=== PATIENT | female | born 1955 | race Hispanic/Latino ===

== ENCOUNTER 2017-09-06 10:36 | Emergency (ER) | payer SELFPAY ==
[2017-09-06 11:19] VITALS: BMI 28.8
[2017-09-06 11:22] VITALS: TEMP 98.6
--- NOTE | 2017-09-06 11:25 | ED PDOC ---
Arrival/HPI - General Chief Complaint: Trauma Time Seen by Provider: 09/06/17 11:24 Historian: Patient - History of Present Illness Narrative History of Present Illness (Text): 09/06/17 11:25 Tiny Chapman is a 62 year old female presents to the Emergency department complaining of left ankle pain status post fall from a chair at 9am today. Patient informs she was attempting to reach "wrapping paper" when she lost her balance and fell on her back. Patient informs a shooting pain on her left knee radiating to her left leg and hip. Patient denies any chest pain, shortness of breath, nausea, vomiting , lightheadedness or any other complaints. Time/Duration: Prior to Arrival Symptom Onset: Gradual Symptom Course: Unchanged Activities at Onset: Light Context: Home Past Medical History - Provider Review Nursing Documentation Reviewed: Yes - Infectious Disease Hx of Infectious Diseases: None - Tetanus Immunization Tetanus Immunization: Up to Date - Cardiac Hx Angina: Yes Hx Hypertension: Yes - Pulmonary Hx Asthma: Yes - Neurological Hx Neurological Disorder: No - HEENT Hx HEENT Disorder: No - Renal Hx Renal Disorder: No - Endocrine/Metabolic Hx Endocrine Disorders: No - Hematological/Oncological Hx Blood Disorders: No - Integumentary Hx Dermatological Disorder: No - Musculoskeletal/Rheumatological Hx Arthritis: Yes (R hand, R foot) Hx Falls: No - Gastrointestinal Hx Gastroesophageal Reflux: Yes Other/Comment: Rectal prolapse - Genitourinary/Gynecological Other/Comment: Uterine prolapse, Bladder prolapse - Psychiatric Hx Anxiety: Yes Hx Substance Use: No - Past Surgical History Past Surgical History: No Previous - Surgical History Other/Comment: endometriosis. sinus polyps surgery. R foot surgery. sling for bladder/uterus - Anesthesia Hx Anesthesia: Yes Hx Anesthesia Reactions: No Hx Malignant Hyperthermia: No - Suicidal Assessment Feels Threatened In Home Enviroment: No Family/Social History - Physician Review Nursing Documentation Reviewed: Yes Family/Social History: Unknown Family HX Smoking Status: Never Smoked Hx Alcohol Use: No Hx Substance Use: No Hx Substance Use Treatment: No Allergies/Home Meds Allergies/Adverse Reactions: Allergies diphenhydramine [From Benadryl] Allergy (Verified 09/06/17 11:20) ANAPHYLAXIS iodine Allergy (Verified 09/06/17 11:20) ANAPHYLAXIS Penicillins Allergy (Verified 09/06/17 11:20) ANAPHYLAXIS Sulfa (Sulfonamide Antibiotics) Allergy (Verified 09/06/17 11:20) ANAPHYLAXIS CT Dye Allergy (Uncoded 09/06/17 11:20) ANAPHYLAXIS Home Medications: Home Meds Medication Instructions Recorded Confirmed Alprazolam [Xanax] 1 tab PO PRN PRN 09/06/17 09/06/17 Review of Systems - Review of Systems Constitutional: absent: Fevers Respiratory: absent: SOB Cardiovascular: absent: Chest Pain, Syncope Gastrointestinal: absent: Abdominal Pain Musculoskeletal: Other (left ankle and knee pain). absent: Back Pain, Neck Pain Skin: absent: Rash Neurological: absent: Headache, Dizziness Physical Exam Vital Signs Reviewed: Yes Vital Signs Temp Pulse Resp BP Pulse Ox 09/06/17 14:57 88 16 128/70 99 09/06/17 12:28 77 18 128/71 100 09/06/17 11:21 98.6 F 87 18 130/76 100 Temperature: Afebrile Appearance: Positive for: Uncomfortable Pain Distress: Moderate Mental Status: Positive for: Alert and Oriented X 3 - Systems Exam Head: Present: Atraumatic Pupils: Present: PERRL Mouth: Present: Moist Mucous Membranes Neck: Present: Normal Range of Motion. No: Meningeal Signs, MIDLINE TENDERNESS Respiratory/Chest: Present: Clear to Auscultation. No: Respiratory Distress Cardiovascular: Present: Regular Rate and Rhythm Abdomen: No: Tenderness, Distention Back: No: CVA Tenderness, Midline Tenderness Upper Extremity: Present: NORMAL PULSES Lower Extremity: Present: Tenderness, Swelling, Neurovascularly Intact, Other ( pain and mild deformity to left ankle lateral malleolus with soft tissue swelling, no achilles pain, there is pain on palpation of anterior tibia, lateral aspect of knee, negative drawers sign, no knee ligamentous laxity, there is mild pain to left lateral hip but no pain with rotation or flexion extension at hip, no right lower extremity pain, no upper extremity pain noted) Neurological: Present: Motor Func Grossly Intact, Normal Sensory Function Skin: Present: Warm Psychiatric: Present: Alert, Normal Insight, Normal Concentration Medical Decision Making ED Course and Treatment: 09/06/17 11:26 Differential Diagnosis included but are not limited to: sprain vs. ankle fracture 09/06/17 12:30 X-Ray of Tibia/Fibula reviewed by radiologist, shows minimally displaced distal fibula fracture. 09/06/17 12:33 X-ray of Ankle reviewed by radiologist, shows minimally displaced distal fibular fracture 09/07/17 11:09 Patient is nv intact. On re-exam she has persistent left hip pain but states she has had hx of "bad arthritis". Xrays of hip reveal degenerative changes. On re-exam she has been given crutches instructions, states she has used crutches in past. I discussed case with Dr. Rodney Dixon on -call ortho, and patient will be given on -call ortho as option for follow-up as well as podiatry/ortho clinic. Patient splinted in ED, posterior and stirrup at ankle. Re-exam post splint she is nv intact. Distal pulses intact pre and post procedure. Patient's allergies reviewed. Risks/side effects of Ultracet reviewed with patient she states she believes she has had this in past with no adverse effect. Discharged via wheelchair to her transportation. - RAD Interpretation Radiology Orders: 09/06/17 11:25 ANKLE LEFT 3 VIEWS ROUTINE [RAD] Stat 09/06/17 11:27 TIBIA FIBULA LT FALL PROTOCOL [RAD] Stat 09/06/17 13:03 Hip Left [HIP MIN 2V W/ PELVIS LT] [RAD] Stat Warp Dyeing Tender: Radiologist - Medication Orders Current Medication Orders: Discontinued Medications Acetaminophen (Tylenol 325mg Tab) 650 mg PO ONCE STA Stop: 09/06/17 11:26 Last Admin: 09/06/17 11:36 Dose: 650 mg Alprazolam (Xanax) 0.25 mg PO STAT STA Stop: 09/06/17 11:26 Last Admin: 09/06/17 11:36 Dose: 0.25 mg - Scribe Statement The provider has reviewed the documentation as recorded by the Hinaibalia Rojas. All medical record entries made by the Bro were at my direction and personally dictated by me. I have reviewed the chart and agree that the record accurately reflects my personal performance of the history, physical exam, medical decision making, and the department course for this patient. I have also personally directed, reviewed, and agree with the discharge instructions and disposition. Disposition/Present on Arrival - Present on Arrival Any Indicators Present on Arrival: No History of DVT/PE: No History of Uncontrolled Diabetes: No Urinary Catheter: No History of Decub. Ulcer: No History Surgical Site Infection Following: None - Disposition Have Diagnosis and Disposition been Completed?: Yes Diagnosis: Ankle fracture, Hip pain Disposition: HOME/ ROUTINE Disposition Time: 14:00 Patient Plan: Discharge Condition: GOOD Discharge Instructions (ExitCare): Ankle Fracture (ED) Additional Instructions: Rest. Ice and elevated leg. Use crutches as directed. For any numbness or weakness, any bleeding, any decreased sensation, any persistent or worsening of pain or symptoms, get rechecked. Do not bear weight on the affected leg. Follow-up with orthopedic doctor as directed. Prescriptions: Tramadol HCl/Acetaminophen [Tramadol-Acetaminophn 37.5-325] 1 each PO BID PRN # 8 tablet PRN Reason: Pain, Severe (8-10) Referrals: [facility] [Outside] - Follow up with primary [facility] [Outside] - Follow up with primary [facility] [place] [Outside] - Follow up with primary Podiatry Clinic [Outside] - Follow up with primary Clement CONRAD,Ramirez Bautista MD [Primary Care Provider] - Follow up with primary Susan Nelson MD [Staff Provider] - Follow up with primary Forms: [id number] (Tuvaluan)
--- NOTE | 2017-09-06 12:18 | RAD ---
PROCEDURE: Left Ankle Radiographs. HISTORY: ankle injury COMPARISON: None FINDINGS: BONES: Minimally displaced distal fibula fracture. JOINTS: Ankle mortise maintained. Talar dome intact SOFT TISSUES: Lateral malleolar soft tissue swelling. OTHER FINDINGS: Inferior plantar calcaneal spur. IMPRESSION: Minimally displaced distal fibular fracture.
--- NOTE | 2017-09-06 12:19 | RAD ---
PROCEDURE: Radiographs of the left tibia and fibula. HISTORY: r/o fx COMPARISON: None available. TECHNIQUE: Frontal and lateral views obtained. FINDINGS: BONES: Minimally displaced distal fibular fracture. JOINT SPACES: Unremarkable. OTHER FINDINGS: Lateral malleolar soft tissue swelling. IMPRESSION: Minimally displaced distal fibula fracture.
--- NOTE | 2017-09-06 14:09 | RAD ---
PROCEDURE: Left Hip X-ray Radiographs. HISTORY: hip pain COMPARISON: None. FINDINGS: BONES: No fracture. JOINTS: Narrowing of both hips with subchondral sclerosis, cystic change and osteophytosis, left worst than right. SOFT TISSUES: Normal. OTHER FINDINGS: None. IMPRESSION: Bilateral hip degenerative changes, left worse than right.
[2017-09-06 14:58] VITALS: BP 128/70; PULSE 88; RESP 16; O2SAT 99
== END 2017-09-06 14:54 | disposition home or self-care (01) ==
LOC: ED 10:36
DX: M25.552 Pain in left hip (principal); S82.832A Other fracture of upper and lower end of left fibula, initial encounter for closed fracture; W07.XXXA Fall from chair, initial encounter; Y92.009 Unspecified place in unspecified non-institutional (private) residence as the place of occurrence of the external cause

== ENCOUNTER 2017-10-03 12:21 | Emergency (ER) | payer SELFPAY ==
[2017-10-03 12:21] VITALS: BMI 28.8
[2017-10-03 12:34] VITALS: TEMP 98.3
[2017-10-03] MEDS ORDERED: Oxycodone/Acetaminophen 5/325 mg Tab PO STA (12:49)
--- NOTE | 2017-10-03 12:57 | ED PDOC ---
Arrival/HPI - General Chief Complaint: Lower Extremity Problem/Injury Time Seen by Provider: 10/03/17 12:29 Historian: Patient - History of Present Illness Narrative History of Present Illness (Text): 10/03/17 12:44 A 62 year old female presents to the emergency department complaining of left calf pain. Patient was seen in ED on 09/06 after fall and was diagnosed with fibula fracture. Patient is being followed by medical csr Dr. Kern with non- operative mgmt of fracture with splinting and repeat xrays showing improvement of fracture with plan to transition to walking boot in 3 weeks. Patient reports that she was at podiatrists today and he sent her to ED for futher evaluation after she mentioned calf pain x 2 days as he was worried about a blood clot. Patient denies chest pain, shortness of breath, or palpitations. Denies new trauma. PM:D Dr. Ramirez Vaughan Past Medical History - Provider Review Nursing Documentation Reviewed: Yes - Infectious Disease Hx of Infectious Diseases: None - Tetanus Immunization Tetanus Immunization: Up to Date - Reproductive Menopause: Yes - Cardiac Hx Angina: Yes Hx Hypertension: Yes - Pulmonary Hx Asthma: Yes - Neurological Hx Neurological Disorder: No - HEENT Hx HEENT Disorder: No - Renal Hx Renal Disorder: No - Endocrine/Metabolic Hx Endocrine Disorders: No - Hematological/Oncological Hx Blood Disorders: No - Integumentary Hx Dermatological Disorder: No - Musculoskeletal/Rheumatological Hx Arthritis: Yes (R hand, R foot) Hx Falls: No - Gastrointestinal Hx Gastroesophageal Reflux: Yes Other/Comment: Rectal prolapse - Genitourinary/Gynecological Other/Comment: Uterine prolapse, Bladder prolapse - Psychiatric Hx Anxiety: Yes Hx Substance Use: No - Past Surgical History Past Surgical History: No Previous - Surgical History Other/Comment: endometriosis. sinus polyps surgery. R foot surgery. sling for bladder/uterus - Anesthesia Hx Anesthesia: Yes Hx Anesthesia Reactions: No Hx Malignant Hyperthermia: No - Suicidal Assessment Feels Threatened In Home Enviroment: No Family/Social History - Physician Review Nursing Documentation Reviewed: Yes Family/Social History: No Known Family HX Smoking Status: Never Smoked Hx Alcohol Use: No Hx Substance Use: No Hx Substance Use Treatment: No Allergies/Home Meds Allergies/Adverse Reactions: Allergies diphenhydramine [From Benadryl] Allergy (Verified 10/03/17 12:34) ANAPHYLAXIS iodine Allergy (Verified 10/03/17 12:34) ANAPHYLAXIS Penicillins Allergy (Verified 10/03/17 12:34) ANAPHYLAXIS Sulfa (Sulfonamide Antibiotics) Allergy (Verified 09/06/17 11:20) ANAPHYLAXIS CT Dye Allergy (Uncoded 09/06/17 11:20) ANAPHYLAXIS Home Medications: Home Meds Medication Instructions Recorded Confirmed Alprazolam [Xanax] 1 tab PO PRN PRN 09/06/17 10/03/17 Ibuprofen [Motrin Ib] 200 mg PO PRN PRN 10/03/17 10/03/17 Review of Systems - Physician Review All systems were reviewed & negative as marked: Yes - Review of Systems Respiratory: absent: SOB, Cough, Sputum, Wheezing Cardiovascular: absent: Chest Pain, Palpitations, Edema, Calf Pain, Orthopnea, Syncope Gastrointestinal: absent: Abdominal Pain, Constipation, Diarrhea, Nausea, Vomiting Musculoskeletal: Other (left calf pain) Physical Exam Vital Signs Reviewed: Yes Vital Signs Temp Pulse Resp BP Pulse Ox 10/03/17 15:14 73 18 134/86 99 10/03/17 12:29 98.3 F 104 H 20 118/60 100 Temperature: Afebrile Blood Pressure: Normal Pulse: Regular Respiratory Rate: Normal Appearance: Positive for: Well-Appearing Pain Distress: None Mental Status: Positive for: Alert and Oriented X 3 - Systems Exam Head: Present: Atraumatic, Normocephalic Pupils: Present: PERRL Extroacular Muscles: Present: EOMI Conjunctiva: Present: Normal Mouth: Present: Moist Mucous Membranes Respiratory/Chest: Present: Clear to Auscultation, Good Air Exchange. No: Respiratory Distress, Accessory Muscle Use Cardiovascular: Present: Regular Rate and Rhythm, Normal S1, S2. No: Murmurs Abdomen: Present: Normal Bowel Sounds. No: Tenderness, Distention, Peritoneal Signs Upper Extremity: Present: Normal Inspection. No: Cyanosis, Edema Lower Extremity: Present: CALF TENDERNESS (posterior left calf), NORMAL PULSES ( distal pulses intact), Swelling (left leg, mostly in toes) Neurological: Present: GCS=15, CN II-XII Intact Medical Decision Making ED Course and Treatment: 10/03/17 12:49 Impression: 62 year old female with left calf pain. Physical exam shows left posterior calf tenderness and swelling, distal pulses intact. No warmth or redness to suggest infection. Plan: -- Lower Extremity Ultrasound to r/o dvt. -- Percocet -- Reassess and disposition Prior Visits: Notes and results from previous visits were reviewed. Patient was last seen in the emergency department on 09/06/2017 for left ankle pain s/p fall. Patient was d/c home. Progress Notes: 10/03/17 13:06 U/s negative for dvt. Will dc to follow-up with medical csr. - RAD Interpretation Radiology Orders: 10/03/17 12:49 DUPLEX LOWER EXTRM VEIN LEFT [US] Stat - Medication Orders Current Medication Orders: Discontinued Medications Oxycodone/Acetaminophen (Percocet 5/325 Mg Tab) 1 tab PO STAT STA Stop: 10/03/17 12:50 Last Admin: 10/03/17 13:16 Dose: 1 tab MAR Pain Assessment Document 10/03/17 13:16 EQ (Rec: 10/03/17 13:16 EQ [id number]) Pain Reassessment Is this a pain reassessment? No Sleep Is patient sleeping during reassessment? No Presence of Pain Presence of Pain Yes Pain Scale Used Pain Scale Used Numeric - Scribe Statement The provider has reviewed the documentation as recorded by the Bro [place] Provider Scribe Attestation: All medical record entries made by the Scribe were at my direction and personally dictated by me. I have reviewed the chart and agree that the record accurately reflects my personal performance of the history, physical exam, medical decision making, and the department course for this patient. I have also personally directed, reviewed, and agree with the discharge instructions and disposition. Disposition/Present on Arrival - Present on Arrival Any Indicators Present on Arrival: No History of DVT/PE: No History of Uncontrolled Diabetes: No Urinary Catheter: No History of Decub. Ulcer: No History Surgical Site Infection Following: None - Disposition Have Diagnosis and Disposition been Completed?: Yes Diagnosis: Leg pain Disposition: HOME/ ROUTINE Disposition Time: 14:55 Patient Plan: Discharge Condition: GOOD Additional Instructions: Follow-up with PMD within 2 days. Return to ED if condition worsens. Follow- up with your medical csr within 2 days Referrals: Clement CONRAD,Ramirez Bautista MD [Primary Care Provider] - Follow up with primary Forms: [employer] system (Slovak)
[2017-10-03 15:15] VITALS: BP 134/86; PULSE 73; RESP 18; O2SAT 99
--- NOTE | 2017-10-03 17:37 | US ---
PROCEDURE: Left lower extremity venous US HISTORY: Leg pain and swelling. Evaluate for DVT. PHYSICIAN(S): Isak Hammond MD. TECHNIQUE: Duplex sonography and color-flow Doppler with graded compression were used to evaluate the deep venous system of the left lower extremity. FINDINGS: The visualized deep venous system of the left lower extremity is sonographically normal and compressible. Normal wave forms and augmentation are seen. There is no sonographic evidence for deep venous thrombosis in the visualized segments of the left lower extremity. IMPRESSION: 1. No sonographic evidence for deep venous thrombosis in the visualized segments of the left lower extremity.
== END 2017-10-03 16:00 | disposition home or self-care (01) ==
LOC: ED 12:21
DX: M79.662 Pain in left lower leg (principal); I10 Essential (primary) hypertension

== ENCOUNTER 2017-10-04 23:36 | Emergency (ER) | payer SELFPAY ==
[2017-10-04 23:48] VITALS: BMI 29.2
[2017-10-04 23:54] VITALS: BP 133/99; PULSE 105; RESP 20; TEMP 98.4; O2SAT 100
--- NOTE | 2017-10-05 00:05 | ED PDOC ---
Arrival/HPI - General Chief Complaint: Lower Extremity Problem/Injury Time Seen by Provider: 10/04/17 23:45 Historian: Patient - History of Present Illness Narrative History of Present Illness (Text): 10/05/17 00:05 62 year old female, whose past medical history includes ACS, presents to the emergency department complaining of left calf pain and foot pain that began yesterday. Patient was seen in the Emergency department on 09/06/17 after fall and was diagnosed with distal fibular fracture. Patient followed up with her chlorine cells operator Dr. Kern yesterday and was sent to [facility] to r/o DVT after complaining of calf pain. Ultrasound was negative and split was reapplied yesterday. Patient states worsening pain ever since the split was reapplied. Slight relief when split was removed. Patient denies any fever, chills, chest pain, shortness of breath, nausea, vomiting, diarrhea, urinary symptoms, back pain, neck pain, headache, dizziness, or any other complaints/injuries. PMD Dr. Ramirez Vaughan Time/Duration: Other (yesterday ) Symptom Course: Unchanged Activities at Onset: Light Context: Home Past Medical History - Provider Review Nursing Documentation Reviewed: Yes - Infectious Disease Hx of Infectious Diseases: None - Tetanus Immunization Tetanus Immunization: Up to Date - Cardiac Hx Angina: Yes Hx Hypertension: Yes - Pulmonary Hx Asthma: Yes - Neurological Hx Neurological Disorder: No - HEENT Hx HEENT Disorder: No - Renal Hx Renal Disorder: No - Endocrine/Metabolic Hx Endocrine Disorders: No - Hematological/Oncological Hx Blood Disorders: No - Integumentary Hx Dermatological Disorder: No - Musculoskeletal/Rheumatological Hx Arthritis: Yes (R hand, R foot) Hx Falls: No - Gastrointestinal Hx Gastroesophageal Reflux: Yes Other/Comment: Rectal prolapse - Genitourinary/Gynecological Other/Comment: Uterine prolapse, Bladder prolapse - Psychiatric Hx Anxiety: Yes Hx Substance Use: No - Past Surgical History Past Surgical History: No Previous - Surgical History Other/Comment: endometriosis. sinus polyps surgery. R foot surgery. sling for bladder/uterus - Anesthesia Hx Anesthesia: Yes Hx Anesthesia Reactions: No Hx Malignant Hyperthermia: No - Suicidal Assessment Feels Threatened In Home Enviroment: No Family/Social History - Physician Review Nursing Documentation Reviewed: Yes Family/Social History: No Known Family HX Smoking Status: Never Smoked Hx Alcohol Use: No Hx Substance Use: No Hx Substance Use Treatment: No Allergies/Home Meds Allergies/Adverse Reactions: Allergies diphenhydramine [From Benadryl] Allergy (Verified 10/04/17 23:48) ANAPHYLAXIS iodine Allergy (Verified 10/04/17 23:48) ANAPHYLAXIS Penicillins Allergy (Verified 10/04/17 23:48) ANAPHYLAXIS Sulfa (Sulfonamide Antibiotics) Allergy (Verified 10/04/17 23:48) ANAPHYLAXIS CT Dye Allergy (Uncoded 10/04/17 23:48) ANAPHYLAXIS Home Medications: Home Meds Medication Instructions Recorded Confirmed Alprazolam [Xanax] 1 tab PO PRN PRN 09/06/17 10/04/17 Ibuprofen [Motrin Ib] 200 mg PO PRN PRN 10/03/17 10/04/17 Review of Systems - Physician Review All systems were reviewed & negative as marked: Yes - Review of Systems Constitutional: absent: Fevers, Other (Chills) Respiratory: absent: SOB Cardiovascular: absent: Chest Pain Gastrointestinal: absent: Diarrhea, Nausea, Vomiting Musculoskeletal: Other (Left calf and foot pain). absent: Back Pain, Neck Pain Neurological: absent: Headache, Dizziness Physical Exam Vital Signs Reviewed: Yes Vital Signs Temp Pulse Resp BP Pulse Ox 10/04/17 23:52 98.4 F 105 H 20 133/99 H 100 Temperature: Afebrile Blood Pressure: Normal Pulse: Regular Respiratory Rate: Normal Appearance: Positive for: Well-Appearing, Non-Toxic, Comfortable Pain Distress: Moderate (moderate distress due to pain of her dorsal aspect of left foot covered by a bisugar tong split for distal fibula fracture which occured 2 weeks ago.) Mental Status: Positive for: Alert and Oriented X 3 - Systems Exam Head: Present: Atraumatic, Normocephalic Pupils: Present: PERRL Extroacular Muscles: Present: EOMI Conjunctiva: Present: Normal Mouth: Present: Moist Mucous Membranes Neck: Present: Normal Range of Motion Respiratory/Chest: Present: Clear to Auscultation, Good Air Exchange. No: Respiratory Distress, Accessory Muscle Use Cardiovascular: Present: Regular Rate and Rhythm, Normal S1, S2. No: Murmurs Abdomen: Present: Normal Bowel Sounds. No: Tenderness, Distention, Peritoneal Signs Back: Present: Normal Inspection Upper Extremity: Present: Normal Inspection. No: Cyanosis, Edema Lower Extremity: Present: NORMAL PULSES (Normal Distal Pulses intact ), Tenderness (Exclusively tender to touch of the dorsal aspect of foot), Erythema (Noted after splint removed redness and irritation of dorsal aspect of foot.), Capillary Refill < 2 s (Distal cappillary refills < 2s), Other (Noted foot to be slightly plantar flexed. Appears to be irritation to soft tissue due to placement of splint. No eveidence of infection). No: Edema, Normal ROM ( Patient experience pain at the fracture site upon any attempt to passively dorsiflex the ankle to neutral position. ) Neurological: Present: GCS=15, CN II-XII Intact, Speech Normal Skin: Present: Warm, Dry, Normal Color. No: Rashes Psychiatric: Present: Alert, Oriented x 3, Normal Insight, Normal Concentration Medical Decision Making ED Course and Treatment: 10/05/17 00:05 Impression: 62 year old female presents with worsening left calf and left foot pain that began yesterday after splint was reapplied. Plan: -- Reassess and disposition Prior Visits: Notes and results from previous visits were reviewed. Patient was last seen in the emergency department on 10/03/17 sent by Dry Yard Worker for ultrasound after pt complaining of calf pain that began 2 days ago. Patient was discharged. Progress Notes: 10/05/17 01:48 Posterior splint reapplied in neutral position. Patient expresses greater comfort and discharged in improved condition. Foot remains neurovascularly intact. - Scribe Statement The provider has reviewed the documentation as recorded by the Bro Boyle Provider Scribe Attestation: All medical record entries made by the Bro were at my direction and personally dictated by me. I have reviewed the chart and agree that the record accurately reflects my personal performance of the history, physical exam, medical decision making, and the department course for this patient. I have also personally directed, reviewed, and agree with the discharge instructions and disposition. Disposition/Present on Arrival - Present on Arrival History of DVT/PE: No History of Uncontrolled Diabetes: No Urinary Catheter: No History of Decub. Ulcer: No History Surgical Site Infection Following: None - Disposition Diagnosis: Compression neuropathy Disposition: HOME/ ROUTINE Patient Problems: Current Active Problems Problem Status Onset Compression neuropathy Acute Referrals: Abdiaziz Vaguhan MD [Primary Care Provider] - Follow up with primary Forms: [employer] ([place])
== END 2017-10-05 02:00 | disposition home or self-care (01) ==
LOC: ED 23:36
DX: G58.9 Mononeuropathy, unspecified (principal); I10 Essential (primary) hypertension

== ENCOUNTER 2018-01-21 16:39 | Emergency (ER) | payer SELFPAY ==
[2018-01-21 16:39] VITALS: BMI 29.2
[2018-01-21 17:00] VITALS: RESP 16
--- NOTE | 2018-01-21 17:27 | ED PDOC ---
Arrival/HPI - General Chief Complaint: Female Genitourinary Time Seen by Provider: 01/21/18 17:06 Historian: Patient - History of Present Illness Narrative History of Present Illness (Text): 01/21/18 17:11 A 62 year old female, whose past medical history includes ACS, hypertension, angina, arthritis, and GERD, presents to the emergency department complaining of lower abdominal pain. Patient reports she currently has a prolapsed uterus for 10 years now. Patient states having been evaluated by her EMPLOYEE'S REPRESENTATIVE Dr. Sousa and had placed a #1 pessary, which was later replaced with a #4 pessary. However retainer fell out recently. Patient notes also experiencing back pain, but denies any fever, vaginal discharge/bleeding, or any other complaints at this time. PMD: Dr. Ramirez Vaughan EMPLOYEE'S REPRESENTATIVE: Dr. Lars Lucero Symptom Onset: Gradual Symptom Course: Unchanged Activities at Onset: Light Context: Home Past Medical History - Provider Review Nursing Documentation Reviewed: Yes - Infectious Disease Hx of Infectious Diseases: None - Tetanus Immunization Tetanus Immunization: Up to Date - Cardiac Hx Cardiac Disorders: Yes Hx Angina: Yes Hx Hypertension: Yes - Pulmonary Hx Respiratory Disorders: Yes Hx Asthma: Yes - Neurological Hx Neurological Disorder: No - HEENT Hx HEENT Disorder: No - Renal Hx Renal Disorder: No - Endocrine/Metabolic Hx Endocrine Disorders: No - Hematological/Oncological Hx Blood Disorders: No - Integumentary Hx Dermatological Disorder: No - Musculoskeletal/Rheumatological Hx Musculoskeletal Disorders: Yes Hx Arthritis: Yes (R hand, R foot) Hx Falls: No Hx Fractures: Yes (L ANKLE) Other/Comment: DVT - Gastrointestinal Hx Gastrointestinal Disorders: Yes Hx Gastroesophageal Reflux: Yes Other/Comment: Rectal prolapse - Genitourinary/Gynecological Hx Genitourinary Disorders: Yes Other/Comment: Uterine prolapse, Bladder prolapse - Psychiatric Hx Psychophysiologic Disorder: Yes Hx Anxiety: Yes Hx Substance Use: No - Past Surgical History Past Surgical History: No Previous - Surgical History Other/Comment: endometriosis. sinus polyps surgery. R foot surgery. sling for bladder/uterus - Anesthesia Hx Anesthesia: Yes Hx Anesthesia Reactions: No Hx Malignant Hyperthermia: No - Suicidal Assessment Feels Threatened In Home Enviroment: No Family/Social History - Physician Review Nursing Documentation Reviewed: Yes Family/Social History: No Known Family HX Smoking Status: Never Smoked Hx Alcohol Use: No Hx Substance Use: No Hx Substance Use Treatment: No Allergies/Home Meds Allergies/Adverse Reactions: Allergies diphenhydramine [From Benadryl] Allergy (Verified 01/21/18 16:54) ANAPHYLAXIS iodine Allergy (Verified 01/21/18 16:54) ANAPHYLAXIS Penicillins Allergy (Verified 01/21/18 16:54) ANAPHYLAXIS Sulfa (Sulfonamide Antibiotics) Allergy (Verified 01/21/18 16:54) ANAPHYLAXIS CT Dye Allergy (Uncoded 01/21/18 16:54) ANAPHYLAXIS Home Medications: Home Meds Medication Instructions Recorded Confirmed Alprazolam [Xanax] 1 tab PO PRN PRN 09/06/17 01/21/18 Apixaban [Eliquis] 5 mg PO BID 01/21/18 01/21/18 Review of Systems - Physician Review All systems were reviewed & negative as marked: Yes - Review of Systems Constitutional: absent: Fevers Gastrointestinal: Abdominal Pain (lower abdominal pain) Genitourinary Female: absent: Vaginal Bleeding, Vaginal Discharge Musculoskeletal: Back Pain Physical Exam Vital Signs Reviewed: Yes Vital Signs Temp Pulse Resp BP Pulse Ox 01/21/18 18:55 97.8 F 80 16 138/77 99 01/21/18 16:55 97.9 F 77 16 142/80 100 Temperature: Afebrile Blood Pressure: Normal Pulse: Regular Respiratory Rate: Normal Appearance: Positive for: Well-Appearing Pain Distress: None Mental Status: Positive for: Alert and Oriented X 3 - Systems Exam Head: Present: Atraumatic, Normocephalic Pupils: Present: PERRL Extroacular Muscles: Present: EOMI Conjunctiva: Present: Normal Mouth: Present: Moist Mucous Membranes Neck: Present: Normal Range of Motion Respiratory/Chest: Present: Clear to Auscultation, Good Air Exchange. No: Respiratory Distress, Accessory Muscle Use Cardiovascular: Present: Regular Rate and Rhythm, Normal S1, S2. No: Murmurs Abdomen: Present: Tenderness (mid-lower region), Guarding Genitourinary/Pelvic Exam: Present: Other (prolapsed uterus 4-5 inches). No: Vaginal Bleeding Upper Extremity: Present: Normal Inspection. No: Cyanosis, Edema Lower Extremity: Present: Edema (bilaterally) Neurological: Present: GCS=15, CN II-XII Intact, Speech Normal Skin: Present: Warm, Dry, Normal Color. No: Rashes Psychiatric: Present: Alert, Oriented x 3, Normal Insight, Normal Concentration Medical Decision Making ED Course and Treatment: 01/21/18 17:14 Impression: 62 year old female with lower abdominal pain. Physical exam shows prolapsed uterus 4-5 inches, no bleeding; mid-lower abdominal tenderness with guarding; lower extremity edema bilaterally. Differential Diagnosis included but are not limited to: Prolapsed Uterus Prior Visits: Notes and results from previous visits were reviewed. Patient was last seen in the emergency department on 09/17/2017 for left calf pain and foot pain. Patient was discharged home. Progress Notes: 01/21/18 18:[address] Catalan who was on OBGYN fire prevention captain. He recommended reduction of prolapsed uterine and reapplication of the pessary. Uterine prolapse reduced with pressure by me, and re-applied pessary by me, which stabilized and remained in position. [employer] Service Engineer MYRNA Casper. Patient tolerated procedure with no pain and is urinating with no difficulty. Urinalysis results are negative. Patient will follow-up with EMPLOYEE'S REPRESENTATIVE. - Lab Interpretations Microbiology Results: Microbiology Results 01/21/18 18:15 Urine,Clean Catch Urine Culture - Final Corynebacterium Species Lab Results: Lab Results 01/21/18 18:21: Urine Color Yellow, Urine Appearance Clear, Urine pH 6.5, Ur Specific Elbert 1.010, Urine Protein Negative, Urine Glucose (UA) Negative, Urine Ketones Negative, Urine Blood Negative, Urine Nitrate Negative, Urine Bilirubin Negative, Urine Urobilinogen 0.2, Ur Leukocyte Esterase Trace H, Urine RBC TEST NOT PERFORMED, Urine WBC 2 - 5, Ur Epithelial Cells 6 - 8 I have reviewed the lab results: Yes - Scribe Statement The provider has reviewed the documentation as recorded by the Bro [place] Provider Scribe Attestation: All medical record entries made by the Scribe were at my direction and personally dictated by me. I have reviewed the chart and agree that the record accurately reflects my personal performance of the history, physical exam, medical decision making, and the department course for this patient. I have also personally directed, reviewed, and agree with the discharge instructions and disposition. Disposition/Present on Arrival - Present on Arrival Any Indicators Present on Arrival: No History of DVT/PE: No History of Uncontrolled Diabetes: No Urinary Catheter: No History of Decub. Ulcer: No History Surgical Site Infection Following: None - Disposition Have Diagnosis and Disposition been Completed?: Yes Diagnosis: Uterine prolapse Disposition: HOME/ ROUTINE Disposition Time: 18:50 Patient Plan: Discharge Condition: IMPROVED Discharge Instructions (ExitCare): Vaginal Prolapse Additional Instructions: Ms Chapman, thank you for letting us take care of you today. Your provider was Dr. De Dios. You were treated for Uterine Prolapse. The emergency medical care you received today was directed at your acute symptoms. If you were prescribed any medication, please fill it and take as directed. It may take several days for your symptoms to resolve. Return to the Emergency Department if your symptoms worsen, do not improve, or if you have any other problems. Please contact your doctor or call one of the physicians/clinics you have been referred to that are listed on the Patient Visit Information form that is included in your discharge packet. Bring any paperwork you were given at discharge with you along with any medications you are taking to your follow up visit. Our treatment cannot replace ongoing medical care by a primary care provider (PCP) outside of the emergency department. Thank you for allowing the [facility] team to be part of your care today. If you had an X-Ray or CT scan: A Radiologist will review the ED reading if any change in treatment is needed we will contact you. If you had a blood, urine, or wound culture: It will take several days for the results, if any change in treatment is needed we will contact you. If you had an STI test: It will take 48 hours for the results. Please call after 1 week if you have not heard back. Referrals: [facility], [Non-Staff] - Follow up with primary Forms: [employer] (Italian), WORK NOTE
[2018-01-21 18:42] LABS: PH,URINE 6.5 (4.7-8.0); URINE APPEARANCE CLEAR (CLEAR); URINE BILIRUBIN NEGATIVE (NEGATIVE); URINE BLOOD NEGATIVE (NEGATIVE); URINE COLOR YELLOW (YELLOW); URINE GLUCOSE (UA) NEGATIVE (NEGATIVE); URINE LEUKOCYTE ESTERASE TRACE Leu/uL (NEGATIVE); URINE PROTEIN NEGATIVE mg/dL (<30 mg/dL); URINE UROBILINOGEN 0.2 E.U./dL (<1 E.U./dL)
[2018-01-22 01:03] VITALS: BP 138/77; PULSE 80; TEMP 97.8; O2SAT 99
== END 2018-01-21 18:55 | disposition home or self-care (01) ==
LOC: ED 16:39
DX: N81.4 Uterovaginal prolapse, unspecified (principal)

== ENCOUNTER 2018-07-20 13:37 | Emergency (ER) | payer OTHER, SELFPAY ==
[2018-07-20 13:43] VITALS: RESP 18; O2SAT 99; BMI 28.3
--- NOTE | 2018-07-20 14:15 | ED PDOC ---
Arrival/HPI - General Time Seen by Provider: 07/20/18 14:00 Historian: Patient - History of Present Illness Narrative History of Present Illness (Text): 07/20/18 14:12 63 year old female, with no significant past medical history, who presents to the Emergency department complaining of rt lower teeth pain and swelling since yesterday. Patient notes she woke up yesterday morning with swelling to the right lower cheek that has started radiating to the chin and lips. Patient also state experiencing a hoarse voice and neck pain. Patient states she has a cracked tooth.She has been experiencing right lower dental pain for several days prior to swelling. Denies rash or shortness of breath. Denies drooling. Denies pain with eye movements. Time/Duration: < week Symptom Onset: Gradual Symptom Course: Unchanged Activities at Onset: Light Context: Home Past Medical History - Provider Review Nursing Documentation Reviewed: Yes - Infectious Disease Hx of Infectious Diseases: None - Tetanus Immunization Tetanus Immunization: Up to Date - Cardiac Hx Cardiac Disorders: Yes Hx Angina: Yes Hx Hypertension: Yes - Pulmonary Hx Respiratory Disorders: Yes Hx Asthma: Yes - Neurological Hx Neurological Disorder: No - HEENT Hx HEENT Disorder: No - Renal Hx Renal Disorder: No - Endocrine/Metabolic Hx Endocrine Disorders: No - Hematological/Oncological Hx Blood Disorders: No - Integumentary Hx Dermatological Disorder: No - Musculoskeletal/Rheumatological Hx Musculoskeletal Disorders: Yes Hx Arthritis: Yes (R hand, R foot) Hx Falls: No Hx Fractures: Yes (L ANKLE) Other/Comment: DVT - Gastrointestinal Hx Gastrointestinal Disorders: Yes Hx Gastroesophageal Reflux: Yes Other/Comment: Rectal prolapse - Genitourinary/Gynecological Hx Genitourinary Disorders: Yes Other/Comment: Uterine prolapse, Bladder prolapse - Psychiatric Hx Psychophysiologic Disorder: Yes Hx Anxiety: Yes Hx Substance Use: No - Past Surgical History Past Surgical History: No Previous - Surgical History Other/Comment: endometriosis. sinus polyps surgery. R foot surgery. sling for bladder/uterus - Anesthesia Hx Anesthesia: Yes Hx Anesthesia Reactions: No Hx Malignant Hyperthermia: No - Suicidal Assessment Feels Threatened In Home Enviroment: No Family/Social History - Physician Review Nursing Documentation Reviewed: Yes Family/Social History: Unknown Family HX Smoking Status: Never Smoked Hx Alcohol Use: No Hx Substance Use: No Hx Substance Use Treatment: No Allergies/Home Meds Allergies/Adverse Reactions: Allergies diphenhydramine [From Benadryl] Allergy (Verified 07/20/18 15:18) ANAPHYLAXIS iodine Allergy (Verified 07/20/18 15:18) ANAPHYLAXIS Penicillins Allergy (Verified 07/20/18 15:18) ANAPHYLAXIS Sulfa (Sulfonamide Antibiotics) Allergy (Verified 07/20/18 15:18) ANAPHYLAXIS CT Dye Allergy (Uncoded 07/20/18 15:18) ANAPHYLAXIS Home Medications: Home Meds Medication Instructions Recorded Confirmed Alprazolam [Xanax] 1 tab PO PRN PRN 09/06/17 01/21/18 Apixaban [Eliquis] 5 mg PO BID 01/21/18 01/21/18 Review of Systems - Review of Systems Constitutional: absent: Fevers Eyes: absent: Photophobia, Eye Pain ENT: Sore Throat, Other (lower teeth pain). absent: Rhinorrhea, Epistaxis Respiratory: absent: SOB, Cough Cardiovascular: absent: Chest Pain, Edema, KERR Gastrointestinal: absent: Abdominal Pain, Diarrhea, Nausea, Vomiting Genitourinary Female: absent: Dysuria, Hematuria Musculoskeletal: absent: Back Pain, Neck Pain Skin: Other (swelling to the right lower cheek). absent: Rash Neurological: absent: Headache, Dizziness, Focal Weakness Psychiatric: Anxiety Physical Exam - Physical Exam Narrative Physical Exam (Text): 07/20/18 14:17 Head: Atraumatic. Normocephalic. Eyes: PERRL. EOMI. Conjunctivae are not pale. No proptosis. No pain with eye movements. Visual acuity and visual mensah grossly intact. ENT: Mucous membranes are moist and intact. No drooling. NO stridor. No sinus tenderness. Oropharynx is clear and symmetric. No uvula deviation. No drooling. There is soft tissue swelling and tenderness noted to right lower jaw. Poor dentition noted with pain on palpation of right lower gingiva, no bleeding or fluctuance noted. Neck: Supple. Full ROM. There is mild soft tissue swelling noted to inferior portion of right jaw. No bruits. No pain with movements or range of motion. Cardiovascular: Regular rate. Regular rhythm. No murmurs, rubs, or gallops. Distal pulses are 2+ and symmetric. Pulmonary/Chest: No evidence of respiratory distress. Clear to auscultation bilaterally. No wheezing, rales or rhonchi. Abdominal: Soft and non-distended. There is no tenderness. No rebound, guarding, or rigidity. No organomegaly. Good bowel sounds. Back: No CVA tenderness. No midline tenderness. Extremities: No edema. No cyanosis. No clubbing. Full range of motion in all extremities. No calf tenderness. Skin: Skin is warm and dry. No petechiae. No purpura. Soft tissue swelling noted as above to right mandibular region. Neurological: Alert, awake, and oriented. Normal speech. Cranial nerves intact. Motor and sensory exam intact. Psychiatric: Good eye contact. Mildly anxious. Vital Signs Reviewed: Yes Vital Signs Temp Pulse Resp BP Pulse Ox 07/20/18 13:38 98.9 F 138 H 18 149/99 H 99 Temperature: Afebrile Blood Pressure: Hypertensive Pulse: Regular Respiratory Rate: Normal Appearance: Positive for: Non-Toxic, Uncomfortable Pain Distress: Mild Mental Status: Positive for: Alert and Oriented X 3 Medical Decision Making ED Course and Treatment: 07/20/18 14:17 Impression: 63 year old female presents to the emergency department complaining of right lower dental pain and facial swelling. Plan: -- CT maxillofacial -- CT Neck soft tissue -- EKG -- Labs -- Reassess and disposition Progress Notes: Patient on examination is neurologically intact. NO orbital swelling. No pain with eye movements. No headache. Repeat heart rate 80. No chest pain or shortness of breath. She is afebrile. Her oropharynx is clearly visualized with no drooling or edema. NO neck crepitus is noted. NO cough or respiratory distress noted. No arm edema noted. No stridor or wheezing. She is handling secretions without difficulty. There is pain on palpation of right lower gums but no bleeding or purulence., 07/20/18 17:24 CT Neck reviewed, shows: Impression: There is soft tissue swelling of the lower lip on the right side. 'There is no evidence of dental abscess in the adjacent mandible. The finding is nonspecific. CT Maxillofacial reviewed, shows: There is soft tissue swelling of the lower lip on the right side. 'There is no evidence of dental abscess in the adjacent mandible. The finding is nonspecific. With serial exams in ED she is comfortable, afebrile, with no respiratory or swallowing difficulty. WBC is unremarkable and she is handling secretions. No tongue swelling. No urticaria noted. Suspect dental pain/caries, possible early abscess although CT reading was reviewed with patient limitations also noted. Initial dose of oral abx ordered, as she has multiple allergies she will be placed on clindamycin, she has shown no adverse effect to this. Stressed need for follow-up with dentist in 1-2 days, or immediate return to ED for any new or worsening of symptoms. - Scribe Statement The provider has reviewed the documentation as recorded by the Hinaibalia Serna All medical record entries made by the Scribe were at my direction and personally dictated by me. I have reviewed the chart and agree that the record accurately reflects my personal performance of the history, physical exam, medical decision making, and the department course for this patient. I have also personally directed, reviewed, and agree with the discharge instructions and disposition. Disposition/Present on Arrival - Present on Arrival Any Indicators Present on Arrival: No History of DVT/PE: No History of Uncontrolled Diabetes: No Urinary Catheter: No History Surgical Site Infection Following: None - Disposition Have Diagnosis and Disposition been Completed?: Yes Diagnosis: Pain, dental, Facial swelling Disposition: HOME/ ROUTINE Disposition Time: 18:00 Condition: GOOD Discharge Instructions (ExitCare): Tooth Abscess (DC), Dental Pain (DC) Additional Instructions: Please follow-up with dentist in 1-2 days. For any fever, any difficulty swallowing, any headaches or fevers, any eye pain, any pain with eye movements, any shortness of breath, any numbness or weakness, any arm or leg swelling, any rash, any drooling, any wheezing, any persistent or worsening of any symptoms, get rechecked immediately. Return immediately to ER for any worsening of symptoms. [facility] [address], [place] [phone] [address] [place], [place] Prescriptions: Clindamycin [Cleocin] 300 mg PO TID #42 cap Forms: [employer] (Luxembourgish)
[2018-07-20 15:21] LABS: BASO # 0.02 K/mm3 (0.0-2.0); BASO % 0.2 % (0.0-3.0); EOS # 0.1 (0.0-0.7); EOS % 1.4 % (1.5-5.0); GRAN # 6.21 (1.4-6.5); GRAN % 65.4 % (50.0-68.0); LYMPH # 2.2 (1.2-3.4); LYMPH % 23.3 % (22.0-35.0); MEAN CELL VOLUME 90.6 fl (80.0-105.0); MEAN CORPUSCULAR HGB CONC 33.1 g/dl (31.0-37.0); MEAN PLATELET VOLUME 9.5 fl (7.0-11.0); MONO # 0.9 (0.1-0.6); MONO % 9.7 % (1.0-6.0); RBC 4.67 10^6/uL (3.5-6.1); RED CELL DISTRIBUTION WIDTH 13.2 % (11.5-14.5); WHITE BLOOD COUNT 9.5 10^3/uL (4.5-11.0)
[2018-07-20 15:31] LABS: ALB/GLOB RATIO 1.2 (1.1-1.8); ALBUMIN 4.4 g/dL (3.0-4.8); BLOOD UREA NITROGEN 17 mg/dL (7-21); CALCIUM 9.5 mg/dL (8.4-10.5); GFR NON-AFRICAN AMERICAN > 60
[2018-07-20 15:33] LABS: ALT/SGPT 25 U/L (7-56); AST/SGOT 31 U/L (14-36)
--- NOTE | 2018-07-20 16:15 | CARD ---
APPROVED REPORT Date of service: 07/20/2018 EKG Measurement Heart [id number] <Conclusion> Normal sinus rhythm Left axis deviation Minimal voltage criteria for LVH, may be normal variant Abnormal ECG
--- NOTE | 2018-07-20 16:44 | CT ---
Date of service: 07/20/2018 PROCEDURE: CT NECK WITHOUT CONTRAST HISTORY: right upper neck swelling, hoarse throat, iv aller COMPARISON: None available. TECHNIQUE: CT of the neck without intravenous contrast. Coronal and sagittal reformats generated. Radiation dose: Total exam DLP = 353.39 mGy-cm. This CT exam was performed using one or more of the following dose reduction techniques: Automated exposure control, adjustment of the mA and/or kV according to patient size, and/or use of iterative reconstruction technique. FINDINGS: NASOPHARYNX: Unremarkable. SUPRAHYOID NECK: Unremarkable oropharynx, oral cavity, parapharyngeal space and retropharyngeal space. INFRAHYOID NECK: Unremarkable larynx, hypopharynx, and supraglottic space. Vocal cords intact. MASS: None. GLANDS: Parotid and submandibular glands unremarkable. Normal size thyroid gland, without nodule. LYMPH NODES: Normal. No lymphadenopathy. CERVICAL SPINE: No fracture or focal lesion. OTHER FINDINGS: There opacification of the left maxillary sinus IMPRESSION: There is soft tissue swelling of the lower lip on the right side. There is no evidence of dental abscess in the adjacent mandible. The finding is nonspecific
--- NOTE | 2018-07-20 16:46 | CT ---
Date of service: 07/20/2018 PROCEDURE: CT MAXILLOFACIAL BONES WITHOUT CONTRAST HISTORY: right mandibular swelling, iv allergy COMPARISON: None available. TECHNIQUE: Contiguous axial CT images of the maxillofacial bones were obtained. Coronal and sagittal reformats were generated. Radiation dose: Total exam DLP = 732.09 mGy-cm. This CT exam was performed using one or more of the following dose reduction techniques: Automated exposure control, adjustment of the mA and/or kV according to patient size, and/or use of iterative reconstruction technique. FINDINGS: NASAL BONES: Unremarkable. ORBITS: Unremarkable. PARANASAL SINUSES/ MASTOIDS: Partial opacification of the left maxillary sinus. Previous surgery right maxillary sinus with resection of middle turbinate MAXILLA: Unremarkable. MANDIBLE/ TEMPOROMANDIBULAR JOINTS: Unremarkable. SKULL BASE: Unremarkable. TEMPORAL BONES: Middle ears and mastoid grossly unremarkable. OTHER FINDINGS: None. IMPRESSION: There is soft tissue swelling of the lower lip on the right side. There is no evidence of dental abscess in the adjacent mandible. The finding is nonspecific
[2018-07-20 18:06] VITALS: BP 140/92; PULSE 105; TEMP 98.1
== END 2018-07-20 18:05 | disposition home or self-care (01) ==
LOC: ED 13:37
DX: R22.0 Localized swelling, mass and lump, head (principal); K08.89 Other specified disorders of teeth and supporting structures; I10 Essential (primary) hypertension